=== PATIENT | female | born 1930 | race Caucasian/White ===

== ENCOUNTER 2016-10-19 02:50 | Emergency (ER) | payer OTHER ==
--- NOTE | 2016-10-19 03:31 | EDPHY ---
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 She has been treated in [place] for this removed to [place] a week ago. She did have 1 week course of radiation August for pain control. She has not had any chest pain before this. Started having some chest pain in her right ribs 2 days ago. Has had some mild shortness of breath. Does hurt to take a deep breath. She has an appointment at the cancer center later this morning at 11:30 p.m. she did taken OxyContin last yesterday at 1 in the afternoon. He is not taking any further because she is worried about taking too much narcotic. Has not had any relief with ibuprofen or acetaminophen. States it does hurt to breathe. Pain is currently a 9/10. Patient is a vague historian and does not have a medication list or problem list with her. ROS: 10 point Review of Systems is negative except as noted in the HPI. PMH: Breast cancer, atrial fibrillation, pacemaker placement, irritable bowel syndrome Medications: Does not recall but takes atorvastatin and a cancer pill possibly tamoxifen Allergies: To penicillin, Phenergan, Compazine and azithromycin Social History: No smoking, no alcohol, no recreational drug use Family History: non-contributory Physical Exam: Gen: Awake, Alert, No Distress HEENT: Nose: no rhinorrhea Eyes: PERRLA, EOMI Mouth: Moist mucosa Neck: Supple, no JVD Chest: Right lateral lower rib tenderness in the anterior axillary line spreading anteriorly., lungs clear to auscultation Heart: S1, S2 normal, no murmur Abd: Soft, non-tender, no guarding Back: no CVA tenderness, no midline tenderness Ext: no edema, non-tender Skin: no rash Neuro: CN II-XII intact, Sensation grossly intact, Strength 5/5 in bilateral upper and lower extremities - Personal History Current Tetanus Diphtheria and Acellular Pertussis (TDAP): Yes - Medical/Surgical History Hx Asthma: No Hx Chronic Respiratory Disease: No Hx Diabetes: No Hx Cardiac Disease: Yes Hx Renal Disease: No Hx Cirrhosis: No Hx Alcoholism: No Hx HIV/AIDS: No Hx Splenectomy or Spleen Trauma: No Other PMH: bone CA ,IBS, pacemaker- a-fib - Social History Smoking Status: Never smoked Constitutional: Initial Vital Signs Temperature (C) 36.9 C 10/19/16 02:59 Heart Rate 82 10/19/16 02:59 Respiratory Rate 20 10/19/16 02:59 Blood Pressure 142/76 H 10/19/16 02:59 O2 Sat (%) 93 10/19/16 02:59 O2 Delivery Mode Room Air O2 (L/minute) 2 Allergies/Adverse Reactions: azithromycin Allergy (Verified 10/19/16 02:54) Penicillins Allergy (Verified 10/19/16 02:54) prochlorperazine [From Compazine] Allergy (Verified 10/19/16 02:54) promethazine [From Phenergan] Allergy (Verified 10/19/16 02:54) Medical Decision Making - Diagnostics Imaging Results: CT scan of his chest shows extensive bony metastasis of the thoracic spine. There are no PEs. There is some interstitial thickening in the lungs. There is no rib fractures. Interpreted by Dr. Ruiz. Imaging: Discussed imaging studies w/ continuous crusher operator Radiologist ED Course/Re-evaluation: 86-year-old woman with metastatic breast cancer lesions with new onset chest pain and right chest which is pleuritic. She is obviously at risk for PE E or bony metastasis. Will do blood work and a CT angiogram of her chest to rule out PE. Will give IV analgesia now and reassess. CT of the chest is negative for PE or acute fractures. No acute lung process. Patient is improved after IV analgesia. She has an appointment with the Cancer Center at 11 o'clock this morning. Will discharge her to home so that she can follow up with the Cancer Center as scheduled. She will return for any worsening or any concerns. - Data Points Laboratory Results: Laboratory Results 10/19/16 03:40 10/19/16 03:40 10/19/16 10/19/16 03:40 03:40 WBC 5.60 10^3/uL 10^3/uL (3.80-9.50) RBC 3.37 10^6/uL L 10^6/uL (4.18-5.33) Hgb 10.0 g/dL L g/dL (12.6-16.3) Hct 31.4 % L % (38.0-47.0) MCV 93.2 fL fL (81.5-99.8) MCH 29.7 pg pg (27.9-34.1) MCHC 31.8 g/dL L g/dL (32.4-36.7) RDW 19.7 % H % (11.5-15.2) Plt Count 82 10^3/uL L 10^3/uL (150-400) MPV 9.3 fL fL (8.7-11.7) Neut % (Auto) 48.8 % % (39.3-74.2) Lymph % (Auto) 35.5 % % (15.0-45.0) [place] % (Auto) 11.4 % % (4.5-13.0) Eos % (Auto) 2.3 % % (0.6-7.6) Baso % (Auto) 0.9 % % (0.3-1.7) Nucleat RBC Rel Count 1.6 % H % (0.0-0.2) Absolute Neuts (auto) 2.73 10^3/uL 10^3/uL (1.70-6.50) Absolute Lymphs (auto) 1.99 10^3/uL 10^3/uL (1.00-3.00) Absolute Monos (auto) 0.64 10^3/uL 10^3/uL (0.30-0.80) Absolute Eos (auto) 0.13 10^3/uL 10^3/uL (0.03-0.40) Absolute Basos (auto) 0.05 10^3/uL 10^3/uL (0.02-0.10) Absolute Nucleated RBC 0.09 10^3/uL H 10^3/uL (0-0.01) Immature Gran % 1.1 % % (0.0-1.1) Immature Gran # 0.06 10^3/uL 10^3/uL (0.00-0.10) Platelet Estimate DECREASED L (ADEQ) Polychromasia 2+ H Hypochromasia 1+ H Microcytic Cells 1+ H Schistocytes 1+ H Smear Review By Pending Sodium 142 mEq/L mEq/L (134-144) Potassium 3.9 mEq/L mEq/L (3.5-5.2) Chloride 108 mEq/L mEq/L (97-110) Carbon Dioxide 24 mEq/l mEq/l (22-31) Anion Gap 10 mEq/L mEq/L (8-16) BUN 18 mg/dL mg/dL (7-23) Creatinine 0.8 mg/dL mg/dL (0.6-1.0) Estimated GFR > 60 Glucose 97 mg/dL mg/dL (70-100) Calcium 9.2 mg/dL mg/dL (8.5-10.4) Medications Given: Discontinued Medications Sodium Chloride (Ns) 1,000 mls @ 0 mls/hr IV ONCE ONE PRN Reason: Wide Open Stop: 10/19/16 03:36 Last Admin: 10/19/16 03:53 Dose: 1,000 mls Morphine Sulfate (Morphine) 4 mg IVP ONCE ONE Stop: 10/19/16 03:36 Last Admin: 10/19/16 03:53 Dose: 4 mg Ondansetron HCl (Zofran) 4 mg IVP EDNOW ONE Stop: 10/19/16 03:55 Last Admin: 10/19/16 03:54 Dose: 4 mg Departure - Departure Disposition: Home, Routine, Self-Care Clinical Impression: Chest wall pain Condition: Good Instructions: Chest Wall Pain (ED) Additional Instructions: Follow up with the Cancer Center your appointment 05 24 this morning. Return emergency depart for increasing pain, difficulty breathing, or any other concerns. Referrals: Rajat Jain MD [Primary Care Provider] - As per Instructions
[2016-10-19] MEDS ORDERED: NS 1,000 ML IV ONE (03:35)
[2016-10-19] MEDS ORDERED: ONDANSETRON 4 MG/2 ML VIAL ONE (03:51)
[2016-10-19] MEDS ORDERED: ONDANSETRON 4 MG/2 ML VIAL IVP ONE (03:54)
[2016-10-19 03:56] LABS: % IMMATURE GRANULYOCYTES 1.1 % (0.0-1.1); ABSOLUTE IMMATURE GRANULOCYTES 0.06 10^3/uL (0.00-0.10); ABSOLUTE NRBC COUNT 0.09 10^3/uL (0-0.01); ADD DIFF? NO; ADD MORPH? YES; ADD SCAN? NO; ATYPICAL LYMPHOCYTE FLAG 20 (0-99); FRAGMENT RBC FLAG 0 (0-99); HEMATOCRIT 31.4 % (38.0-47.0); LEFT SHIFT FLG 10 (0-99); LIPEMIA HEMOLYSIS FLAG 80 (0-99); MEAN CELL HEMOGLOBIN 29.7 pg (27.9-34.1); MEAN CELL HEMOGLOBIN CONCENTR. 31.8 g/dL (32.4-36.7); MEAN CELL VOLUME 93.2 fL (81.5-99.8); MEAN PLATELET VOLUME 9.3 fL (8.7-11.7); PLATELET CLUMPS FLAG 0 (0-99); PLATELET COUNT 82 10^3/uL (150-400); RED BLOOD CELL COUNT 3.37 10^6/uL (4.18-5.33); RED CELL DISTRIBUTION WIDTH 19.7 % (11.5-15.2)
[2016-10-19 04:07] LABS: NRBC-AUTO% 1.6 % (0.0-0.2)
[2016-10-19 04:12] LABS: ANION GAP 10 mEq/L (8-16); CALCIUM 9.2 mg/dL (8.5-10.4); CARBON DIOXIDE 24 mEq/l (22-31); CHLORIDE 108 mEq/L (97-110); CREATININE 0.8 mg/dL (0.6-1.0); GLOMERULAR FILTRATION RATE > 60; GLUCOSE 97 mg/dL (70-100); POTASSIUM 3.9 mEq/L (3.5-5.2); SODIUM 142 mEq/L (134-144)
[2016-10-19] MEDS ORDERED: IOPAMIDOL (ISOVUE 370) 100 ML BTL IV ONE (04:20)
[2016-10-19 04:38] LABS: HYPOCHROMIA 1+; MICROCYTES 1+; PLATELET ESTIMATE DECREASED (ADEQ); POLYCHROMASIA 2+; SCHISTOCYTES 1+
[2016-10-19 05:14] VITALS: BP 139/69; PULSE 91; RESP 16; TEMP 97.9; O2SAT 98
[2016-10-19 17:27] LABS: ALBUMIN 3.6 g/dL (3.5-5.0); BILIRUBIN-CONJUGATED 0.5 mg/dL (0.0-0.5); BILIRUBIN-UNCONJUGATED 0.5 mg/dL (0.0-1.1)
== END 2016-10-19 05:14 | disposition home or self-care (01) ==
DX: R07.89 Other chest pain (principal); Z85.3 Personal history of malignant neoplasm of breast; Z85.830 Personal history of malignant neoplasm of bone; Z95.0 Presence of cardiac pacemaker
CPT/HCPCS: 71275; 96361; 96374; 96375; 99285; J2405; Q9967; 86300-90

== ENCOUNTER 2017-01-17 17:18 | Emergency (ER) | payer OTHER ==
--- NOTE | 2017-01-17 17:31 | EDPHY ---
H & P Time Seen by Provider: 01/17/17 17:24 HPI/ROS: Chief complaint. Head injury HPI. 86-year-old female trip and fall on a curb short while prior to arrival. She fell and struck her left knee and hit her head sustaining laceration to her forehead. Denies loss of consciousness. Denies neck pain. No injury to arms or other leg. She has been ambulatory. She has had subdural with surgery in the past. She is on aspirin as a blood thinner. No chest discomfort, trouble breathing, abdominal pain. ROS Constitutional. no fever/chills, no weakness Eyes. no problems with vision ENT. no sore throat, no nasal drainage Cardiovascular. no chest pain Respiratory. no shortness of breath, no cough Abdominal. no abdominal pain, no nausea/vomiting, no diarrhea . no problems urinating MS. no calf pain/swelling, no neck/back pain, no joint pain Skin. Laceration to forehead and abrasion to left knee Lymph. no swollen glands Neuro. no headache, no dizziness, no difficulty walking or with speech Past Medical/Surgical History: Previous subdural Social History: , nonsmoker, no alcohol Smoking Status: Never smoked Physical Exam: General Appearance: Alert well-developed female mild distress vital signs are stable. Eyes: Pupils equal and round no pallor or injection. ENT, no hemotympanum or King sign. No oral pharyngeal or dental trauma Respiratory: There are no retractions, lungs are clear to auscultation. Cardiovascular: Regular rate and rhythm. Gastrointestinal: Abdomen is soft and nontender, no masses, bowel sounds normal. Neurological: Awake and alert, sensory and motor exams grossly normal. Skin: 2.5 cm laceration to forehead; abrasion left knee Musculoskeletal: Neck is supple nontender. Extremities symmetrical, full range of motion. Psychiatric: Patient is oriented X 3, there is no agitation. Constitutional: Initial Vital Signs Temperature (C) 36.7 C 01/17/17 17:39 Heart Rate 96 01/17/17 17:39 Respiratory Rate 16 01/17/17 17:39 Blood Pressure 136/84 H 01/17/17 17:39 O2 Sat (%) 96 01/17/17 17:39 O2 Delivery Mode Room Air Allergies/Adverse Reactions: azithromycin Allergy (Verified 01/17/17 17:37) Penicillins Allergy (Verified 01/17/17 17:37) prochlorperazine [From Compazine] Allergy (Verified 01/17/17 17:37) promethazine [From Phenergan] Allergy (Verified 01/17/17 17:37) Home Medications: Medication Instructions Recorded Aspirin EC 81 mg (*) 01/17/17 Embrace 01/17/17 Leveterol 01/17/17 Multivitamin 01/17/17 Medical Decision Making - Diagnostics Imaging Results: Imaging Impressions Cervical Spine CT 01/17/17 17:40 Impression: 1. No acute osseous abnormality seen about the cervical spine. 2. Diffuse lytic and sclerotic osseous metastatic lesions throughout the cervical spine without pathologic compression fractures. 3. Degenerative disk disease lower cervical spine along with facet hypertrophy mid cervical spine more prominent on the left. Findings discussed with Wagner Bruce M.D. at 1857 hour, 01/17/2017.. Head CT 01/17/17 17:40 Impression: 1. Moderate atrophy. 2. Small increased density possible collection underlying the right posterior frontal bone just below the level of the previous sammy holes are could represent small residual scarring or collection from previous subdural drainage. Acute subdural collection or meningioma is felt to be possible but less likely. 3. Extensive microvascular ischemic disease. Findings discussed with Wagner Bruce M.D. at 18:52 hour, 01/17/2017. Noncontrast CT head shows atrophy with some increased density the underlying the right posterior and frontal sammy holes. Cannot rule out acute subdural collection Noncontrast CT of the cervical spine shows DJD and some metastatic disease but no fracture Procedures: Procedure: Laceration repair. Verbal consent was obtained from the patient. The 2.5 cm laceration on the forehead was anesthetized in the usual fashion. The wound was irrigated, draped and explored to its base with a gloved finger. There were no deep structures involved. No tendon injury was identified. The wound was repaired with six 5-0 prolene sutures. The wound repair was simple. The procedure was performed by myself. Abrasions to the left knee are cleaned and dressed ED Course/Re-evaluation: I consulted and discussed case with Dr. He, neurosurgery, who will review the patient's CT Dr. He Re-evaluation at 7:25 p.m.. Patient is stable. She and I discussed imaging study results, treatment plan including criteria for return importance of follow -up further evaluation. She expresses understanding and agreement feels that the head CT is normal Differential Diagnosis: I considered fracture, intracranial bleeding. I considered retained foreign body and infection likelihood of wound Departure - Departure Disposition: Home, Routine, Self-Care Clinical Impression: Forehead laceration Qualifiers: Encounter type: initial encounter Qualified Code(s): S01.81XA - Laceration without foreign body of other part of head, initial encounter Condition: Good Instructions: Care For Your Stitches (ED) Additional Instructions: Keep cut clean and dry. However you may shower with you stitches in. Tylenol as needed for headache. Return for signs of infection. Stitches out 5 days Referrals: Patient,NotPresent [Unknown] - As per Instructions
[2017-01-17 19:39] VITALS: BP 142/66; PULSE 89; RESP 17; TEMP 98.4; O2SAT 97
== END 2017-01-17 19:38 | disposition home or self-care (01) ==
LOC: EDUNIT#
PROC: 0HQ1XZZ Repair Face Skin, External Approach (ICD-10-PCS; principal; 2017-01-17)
DX: S01.81XA Laceration without foreign body of other part of head, initial encounter (principal); Z79.82 Long term (current) use of aspirin; W01.198A Fall on same level from slipping, tripping and stumbling with subsequent striking against other object, initial encounter; Y99.8 Other external cause status; Y93.89 Activity, other specified

== ENCOUNTER → 2017-07-18 | Outpatient (CLI) | payer OTHER | LOC: FIMAGING 15:39 | PROVIDERS: ATTEND Family Medicine Geriatric Medicine | DX: C79.51 Secondary malignant neoplasm of bone (principal); C50.919 Malignant neoplasm of unspecified site of unspecified female breast; M41.84 Other forms of scoliosis, thoracic region ==